=== PATIENT | male | born 1975 | race Caucasian/White ===

== ENCOUNTER 2019-07-26 10:47 | Emergency (ER) | payer OTHER ==
[~2019-07-26] VITALS: Ht 188 cm; Wt 95.2 kg
[2019-07-26 12:03] LABS: BASOPHILS ABSOLUTE AUTO 0.02 K/mm3 (0.00-0.23); BASOPHILS PERCENT AUTO 0 % (0-2); EOSINOPHILS ABSOLUTE AUTO 0.11 K/mm3 (0.00-0.68); EOSINOPHILS PERCENT AUTO 2 % (0-6); Hematocrit 45.4 % (37.0-53.0); Hemoglobin 14.8 g/dL (13.5-17.5); IMMATURE GRAN ABSOLUTE AUTO 0.01 K/mm3 (0.00-0.10); IMMATURE GRAN PERCENT AUTO 0 % (0-1); LYMPHOCYTES ABSOLUTE AUTO 1.43 K/mm3 (0.84-5.20); LYMPHOCYTES PERCENT AUTO 31 % (21-46); MONOCYTES ABSOLUTE AUTO 0.47 K/mm3 (0.16-1.47); MONOCYTES PERCENT AUTO 10 % (4-13); Mean Corpuscular HGB 30.9 pg (26.0-34.0); Mean Corpuscular HGB Conc 32.6 g/dL (31.5-36.5); Mean Corpuscular Volume 95 fL (80-100); Mean Platelet Volume 10.7 fL (9.1-12.4); NEUTROPHILS ABSOLUTE AUTO 2.59 K/mm3 (1.96-9.15); NEUTROPHILS PERCENT AUTO 56 % (41-73); Platelet Count 247 K/mm3 (150-400); RDW Coefficient Variation 11.2 % (11.7-14.2); RDW Standard Deviation 39.4 fL (35.1-46.3); Red Blood Cell Count 4.79 M/mm3 (4.30-5.90); White Blood Cell Count 4.63 K/mm3 (4.00-11.30)
[2019-07-26 12:32] LABS: Alanine Aminotransfer (ALT/SGP 87 U/L (12-78); Albumin, Blood 4.1 g/dL (3.4-5.0); Albumin/Globulin Ratio 1.2 (0.8-1.8); Alk Phos 129 U/L (50-136); Anion Gap 5 mmol/L (6-16); Aspartate Aminotrans (AST/SGOT 39 U/L (12-37); Bilirubin, Total 0.5 mg/dL (0.1-1.0); Blood Urea Nitrogen 16 mg/dL (8-24); CO2, Blood 28 mmol/L (21-32); Calcium, Blood 8.5 mg/dL (8.5-10.1); Chloride, Blood 107 mmol/L (98-108); Creatinine, Blood 0.94 mg/dL (0.60-1.20); Globulin, Blood 3.3 g/dL (2.2-4.0); Glomerular Filtration Rate >60 (60-); Glucose, Blood 83 mg/dL (70-99); Potassium, Blood 3.8 mmol/L (3.5-5.5); Sodium, Blood 140 mmol/L (136-145); Total Protein, Blood 7.4 g/dL (6.4-8.2); Troponin I <0.015 ng/mL (0.000-0.040)
== END 2019-07-26 15:01 | disposition home or self-care (01) ==
LOC: ER 10:47
PROVIDERS: Physician Assistant
DX: G45.9 Transient cerebral ischemic attack, unspecified (principal)
CPT/HCPCS: 70450; 80053; 84484; 85025; 93005; 93010; 99285-25

== ENCOUNTER 2019-08-08 08:35 | Emergency (ER) | payer OTHER ==
[~2019-08-08] VITALS: Ht 185.4 cm; Wt 108.9 kg
[2019-08-08] MEDS ORDERED: TIMDOROPSO (09:30)
[2019-08-08] MEDS ORDERED: PARO30 PO (09:31)
[2019-08-08 10:44] LABS: BASOPHILS ABSOLUTE AUTO 0.02 K/mm3 (0.00-0.23); BASOPHILS PERCENT AUTO 1 % (0-2); EOSINOPHILS ABSOLUTE AUTO 0.21 K/mm3 (0.00-0.68); EOSINOPHILS PERCENT AUTO 5 % (0-6); Hematocrit 43.6 % (37.0-53.0); Hemoglobin 14.3 g/dL (13.5-17.5); IMMATURE GRAN PERCENT AUTO 0 % (0-1); LYMPHOCYTES ABSOLUTE AUTO 1.62 K/mm3 (0.84-5.20); LYMPHOCYTES PERCENT AUTO 37 % (21-46); MONOCYTES ABSOLUTE AUTO 0.46 K/mm3 (0.16-1.47); MONOCYTES PERCENT AUTO 11 % (4-13); Mean Corpuscular HGB 30.6 pg (26.0-34.0); Mean Corpuscular HGB Conc 32.8 g/dL (31.5-36.5); Mean Corpuscular Volume 93 fL (80-100); Mean Platelet Volume 10.6 fL (9.1-12.4); NEUTROPHILS ABSOLUTE AUTO 2.02 K/mm3 (1.96-9.15); NEUTROPHILS PERCENT AUTO 47 % (41-73); Platelet Count 201 K/mm3 (150-400); RDW Coefficient Variation 11.5 % (11.7-14.2); RDW Standard Deviation 39.2 fL (35.1-46.3); Red Blood Cell Count 4.68 M/mm3 (4.30-5.90); White Blood Cell Count 4.33 K/mm3 (4.00-11.30)
[2019-08-08 10:58] LABS: International Normalized Ratio 1.04; Prothrombin Time Results 11.1 Sec (9.7-11.5)
[2019-08-08 11:09] LABS: Alanine Aminotransfer (ALT/SGP 79 U/L (12-78); Albumin, Blood 3.9 g/dL (3.4-5.0); Albumin/Globulin Ratio 1.3 (0.8-1.8); Alk Phos 134 U/L (50-136); Anion Gap 3 mmol/L (6-16); Aspartate Aminotrans (AST/SGOT 36 U/L (12-37); Bilirubin, Total 0.5 mg/dL (0.1-1.0); Blood Urea Nitrogen 16 mg/dL (8-24); Bun/Creatinine Ratio 18.8 (12.0-20.0); CO2, Blood 30 mmol/L (21-32); Calcium, Blood 8.3 mg/dL (8.5-10.1); Chloride, Blood 108 mmol/L (98-108); Creatinine, Blood 0.85 mg/dL (0.60-1.20); Globulin, Blood 3.1 g/dL (2.2-4.0); Glomerular Filtration Rate >60 (60-); Glucose, Blood 91 mg/dL (70-99); Sodium, Blood 141 mmol/L (136-145)
[2019-08-08 13:44] LABS: U Amphetamine Screen Not Detected; U Barbituate Screen Not Detected; U Benzodiazapine Screen Not Detected; U Buprenorphine Screen Not Detected; U Cannabinoids Screen Not Detected; U Cocaine Screen Not Detected; U Methadone Screen Not Detected; U Methamphetamine Screen Not Detected; U Opiates Screen Not Detected; U Oxycodone Screen Not Detected; U Phencyclidine Screen Not Detected; U Propoxyphene Screen Not Detected
[2019-08-08] MEDS ORDERED: CLOP75 PO (17:04)
== END 2019-08-08 17:16 | disposition other institution (70) ==
LOC: MRI 08:35 → ER 08:35
PROVIDERS: Physician Assistant
DX: G83.21 Monoplegia of upper limb affecting right dominant side (principal); Z88.6 Allergy status to analgesic agent; Z79.899 Other long term (current) drug therapy; Z86.73 Personal history of transient ischemic attack (TIA), and cerebral infarction without residual deficits
CPT/HCPCS: 70450; 70496; 70498; 70551; 72141; 80053; 85025; 85610; 93005; 93010; 99285-25; Q9967

== ENCOUNTER 2019-11-11 04:57 | Emergency (ER) | payer OTHER ==
[~2019-11-11] VITALS: Ht 182.9 cm; Wt 113.4 kg
[~2019-11-11 04:57] MED LIST: CLOP75 PO; PARO30 PO; TIMDOROPSO
== END 2019-11-11 06:35 | disposition home or self-care (01) ==
LOC: ER 04:57
DX: S00.81XA Abrasion of other part of head, initial encounter (principal); F10.129 Alcohol abuse with intoxication, unspecified; Z88.6 Allergy status to analgesic agent; Z79.899 Other long term (current) drug therapy; I10 Essential (primary) hypertension; E78.5 Hyperlipidemia, unspecified; W18.30XA Fall on same level, unspecified, initial encounter
CPT/HCPCS: 70450; 72125; 96374; 99284-25; J2405

== ENCOUNTER 2024-05-28 11:01 | Day surgery (SDC) | payer OTHER ==
[~2024-05-28] VITALS: Ht 182.9 cm; Wt 106.9 kg
[2024-05-28] VITALS (13 sets, daily range): BP systolic 106–158; BP diastolic 64–105
[~2024-05-28 11:01] MED LIST changes: +Acetaminophen 500 MG Tab PO SCH; +CYMBALTA30 M1 PO; +CeFAZolin Sodium 2,000 MG in NS 100 ML IV SCH; +Chlorhexidine Mouth Care 15 ML UDC MT SCH; +EYE; +FentaNYL Citrate 50 MCG/ML 2 ML Injection ONE; +Lactated Ringer's 1,000 ML IV SCH; +OxyCODONE HCL 10 MG TABCR PO SCH; +Ropivacaine 0.5% HCl/Pf 123.125 MG,EPINEPHrine HCL 0.25 MG,Ketorolac Tromethamine 15 MG... INFIL SCH; +TIMOLOL BRIMONI; +Tranexamic Acid 1,000 MG in NS 100 ML IV SCH; +propofoL 40 ML IV ONE
[2024-05-28] MEDS ORDERED: CeFAZolin Sodium 2,000 MG VIAL ONE (11:41)
--- NOTE | 2024-05-28 11:54 | NUR ---
INTO [facility]. PT REPORTS 6/10 LEFT HIP PAIN WITH MOVEMENT. HISTORY AND ALLERGIES REVIEWED. LUNGS CLEAR-SATS>90% ON RA. NPO STATUS CONFIRMED. CHLORHEXIDINE SHOWER AND WIPE X 2.
[2024-05-28] MEDS ORDERED: DiphenhydrAMINE HCL 25 MG Cap PO PRN (12:30)
[2024-05-28] MEDS ORDERED: Promethazine HCl 25 MG Tab PO PRN (12:30)
[2024-05-28] MEDS ORDERED: Prochlorperazine Edisylate 10 mg Vial IV PRN (12:30)
[2024-05-28] MEDS ORDERED: Lactated Ringer's 1,000 ML IV SCH (12:35)
[2024-05-28] MEDS ORDERED: Bisacodyl 10 MG Supp PR PRN (12:35)
[2024-05-28] MEDS ORDERED: Magnesium Hydroxide Conc 10 ML UDC PO PRN (12:35)
[2024-05-28] MEDS ORDERED: FLU VACC TS2024-25(6MOS UP)/PF 45 MCG/0.5 ML SYRINGE IM SCH (12:40)
[2024-05-28] MEDS ORDERED: Metoclopramide HCl 5MG / ML 2ML Vial IV PRN (12:40)
[2024-05-28] MEDS ORDERED: OxyCODONE HCL 5 MG TAB PO PRN ×2 (12:40)
[2024-05-28] MEDS ORDERED: HYDROmorphone HCl/Pf 1MG SYR IV PRN (12:40)
[2024-05-28] MEDS ORDERED: Ondansetron HCl 2 MG / ML 2ML Vial IV PRN (12:40)
[2024-05-28] MEDS ORDERED: propofoL 20 ML IV ONE ×3 (12:41→13:43)
[2024-05-28] MEDS ORDERED: Acetaminophen 500 MG Tab PO SCH (16:00)
[2024-05-28] MEDS ORDERED: Ketorolac Tromethamine 15mg Vial IV SCH (18:00)
[2024-05-28] MEDS ORDERED: CeFAZolin Sodium 2,000 MG in NS 100 ML IV SCH (20:30)
[2024-05-28] MEDS ORDERED: Docusate Sodium 100 MG Cap PO SCH (21:00)
--- NOTE | 2024-05-29 04:21 | NUR ---
SHIFT SUMMARY ANGEL WAS ALERT AND FULLY ORIENTED ON ASSESMENT. POD 0 FOR ELECTIVE LTH. PT SENSATION AND CIRCULATION TO DISTAL AFFECTED LEG INTACT. PAIN MODERATELY WELL CONTROLLED. INSCISION SITE/ DRESSING C/D/I. NO ACUTE EVENTS TONIGHT. NO NOTED CHANGES TO PT CONDITION. PT ABLE TO STAND AND AMBULATE WITH SBA FWW AND GB. PT VOIDING APPROPRIATELY.
[2024-05-29 04:26] VITALS: BP 119/79
[2024-05-29 05:51] LABS: BASOPHILS ABSOLUTE AUTO 0.03 K/mm3 (0.00-0.23); BASOPHILS PERCENT AUTO 0 % (0-2); EOSINOPHILS ABSOLUTE AUTO 0.03 K/mm3 (0.00-0.68); EOSINOPHILS PERCENT AUTO 0 % (0-6); Hematocrit 37.8 % (37.0-53.0); IMMATURE GRAN ABSOLUTE AUTO 0.05 K/mm3 (0.00-0.10); IMMATURE GRAN PERCENT AUTO 0 % (0-1); LYMPHOCYTES ABSOLUTE AUTO 1.35 K/mm3 (0.84-5.20); LYMPHOCYTES PERCENT AUTO 11 % (21-46); MONOCYTES ABSOLUTE AUTO 1.36 K/mm3 (0.16-1.47); MONOCYTES PERCENT AUTO 11 % (4-13); Mean Corpuscular HGB 30.1 pg (26.0-34.0); Mean Corpuscular HGB Conc 34.4 g/dL (31.5-36.5); Mean Corpuscular Volume 88 fL (80-100); Mean Platelet Volume 10.1 fL (9.1-12.4); NEUTROPHILS ABSOLUTE AUTO 9.83 K/mm3 (1.96-9.15); NEUTROPHILS PERCENT AUTO 78 % (41-73); Platelet Count 238 K/mm3 (150-400); RDW Coefficient Variation 11.7 % (11.7-14.2); RDW Standard Deviation 37.3 fL (35.1-46.3); Red Blood Cell Count 4.32 M/mm3 (4.30-5.90); White Blood Cell Count 12.65 K/mm3 (4.00-11.30)
[2024-05-29 06:20] LABS: Magnesium, Blood 1.7 mg/dL (1.6-2.4)
[2024-05-29 06:23] LABS: Bun/Creatinine Ratio 24.3 (12.0-20.0); Calcium, Blood 8.5 mg/dL (8.5-10.1); Creatinine, Blood 0.82 mg/dL (0.60-1.20); Potassium, Blood 3.8 mmol/L (3.5-5.5)
[2024-05-29 07:21] VITALS: BP 106/76
[2024-05-29] MEDS ORDERED: ACET500 PO (08:37)
[2024-05-29] MEDS ORDERED: OXYC5 PO (08:39)
[2024-05-29] MEDS ORDERED: XARELTO20 MG PO (08:39)
[2024-05-29] MEDS ORDERED: DULoxetine HCL 60 MG Capsule DR PO SCH (09:00)
--- NOTE | 2024-05-29 10:08 | NUR ---
POD1- L HIP. PRINEO DRESSING C/D/I. DENIES N/T. SENSATION INTACT. MIN 1-2/10 PAIN IN L HIP. VSS. AOX4. PT CLEARED BY PHYSICAL THERAPY. PT AWAITING RIDE TO ARRIVE.
[2024-05-29] MEDS ORDERED: Rivaroxaban 10 MG Tab PO SCH (13:00)
== END 2024-05-29 10:34 | disposition home or self-care (01) ==
LOC: ORSCMMR 11:01 → ORD 12:30 → ORSCMMR 12:30 → ORD 13:00 → SURS 14:39 → ORSCMMR 05-29 10:34
PROVIDERS: Orthopaedic Surgery
PROC: 0SRB0JA Replacement of Left Hip Joint with Synthetic Substitute, Uncemented, Open Approach (ICD-10-PCS; principal; 2024-05-28 12:30)
DX: M16.12 Unilateral primary osteoarthritis, left hip (principal); M87.052 Idiopathic aseptic necrosis of left femur; F41.9 Anxiety disorder, unspecified; F32.A Depression, unspecified; Z79.899 Other long term (current) drug therapy
CPT/HCPCS: 36415; 72170; 80048; 83735; 85025; 97110; 97116; 97162; A9270; C1713; C1776; J0171; J0690; J0735; J1885; J2704; J2795; J3010; J7120

== ENCOUNTER 2025-02-26 06:12 | Day surgery (SDC) | payer OTHER ==
[~2025-02-26] VITALS: Ht 182.9 cm; Wt 106.4 kg
[~2025-02-26 06:12] MED LIST changes: +ACET500 PO; -Acetaminophen 500 MG Tab PO SCH; -CeFAZolin Sodium 2,000 MG in NS 100 ML IV SCH; -Chlorhexidine Mouth Care 15 ML UDC MT SCH; -FentaNYL Citrate 50 MCG/ML 2 ML Injection ONE; -Lactated Ringer's 1,000 ML IV SCH; +OXYC5 PO; -OxyCODONE HCL 10 MG TABCR PO SCH; -Ropivacaine 0.5% HCl/Pf 123.125 MG,EPINEPHrine HCL 0.25 MG,Ketorolac Tromethamine 15 MG... INFIL SCH; -Tranexamic Acid 1,000 MG in NS 100 ML IV SCH; +XARELTO20 MG PO; -propofoL 40 ML IV ONE
[2025-02-26] MEDS ORDERED: CeFAZolin Sodium 2,000 MG VIAL ONE (06:27)
[2025-02-26] MEDS ORDERED: NS 0 ML IV ONE (06:28)
[2025-02-26] MEDS ORDERED: Tranexamic Acid 100 ML IV ONE (06:37)
[2025-02-26] MEDS ORDERED: CELE100 PO (06:50)
[2025-02-26] MEDS ORDERED: FentaNYL Citrate 50 MCG/ML 2 ML Injection ONE ×2 (07:15→09:12)
[2025-02-26] MEDS ORDERED: Midazolam HCl 1MG / ML 2ML Vial ONE (07:15)
[2025-02-26] MEDS ORDERED: Rocuronium Bromide 10 MG/ML 5ML Injection IV ONE (07:16)
[2025-02-26] MEDS ORDERED: Dexamethasone Sod Phos 10 MG/ML 1ML VIAL ONE (07:16)
[2025-02-26] MEDS ORDERED: Bupivacaine HCl 0.25% 30 ML Injection ONE (07:17)
--- NOTE | 2025-02-26 07:34 | NUR ---
02/26/25 [address] FUNES AT BEDSIDE FOR NERVE BLOCK, TIMEOUT PERFORMED. START PROCEDURE AT 0726, END AT 0728. PT TOLERATED PROCEDURE WELL.
[2025-02-26] MEDS ORDERED: Phenylephrine HCl 100 MCG/ML-NS 10MLSYR (1MG/10ML) ONE (07:57)
--- NOTE | 2025-02-26 08:10 | NUR ---
02/26/25 0810 Meme Antonio 1MG EPI ADDED TO EACH OF THE FIRST THREE BAGS OF LR USED IN JOINT IRRIGATION.
[2025-02-26] MEDS ORDERED: Ondansetron HCl 2 MG / ML 2ML Vial ONE (08:34)
[2025-02-26] MEDS ORDERED: Sugammadex Sodium 200 MG/2ML SDV (100 MG/ML) ONE (08:34)
--- NOTE | 2025-02-26 08:56 | NUR ---
02/26/25 0856 Palak Walters 0851 O2 10L/MASK REMOVED, SATS 100% & PT. TRYING TO TAKE IT OFF.
[2025-02-26 09:33] VITALS: BP 166/99
--- NOTE | 2025-02-26 11:10 | NUR ---
02/26/25 1110 Zachary Hsu PT MAINTAINED O2 93-100% FOR MOST OF STAY IN SDU WITH OCCASIONAL, BRIEF DROPS TO 91-89%. O2 QUICKLY, SPONTANEOUSLY RETURNED TO >92%. PT APPEARED ALERT AND RELAXED. HE DENIED SOB, CP, AND OTHER SYMPTOMS. HE WAS GIVEN INCENTIVE SPIROMETER AND INSTRUCTED IN ITS USE. DR. FUNES WAS CONSULTED. HE APPROVED OXYCODONE ADMINISTRATION AND D/C WITH CURRENT O2 LEVEL. PT DID NOT DROP BELOW 92% AFTER 1045. PT DESCRIBED 2/10, TOLERABLE PAIN AT TIME OF D/C AND DENIED NAUSEA. HE EXPRESSED READINESS TO RETURN HOME.
== END 2025-02-26 11:11 | disposition home or self-care (01) ==
LOC: ORSCSDS 06:12
PROVIDERS: Orthopaedic Surgery Sports Medicine
PROC: 0RBJ4ZZ Excision of Right Shoulder Joint, Percutaneous Endoscopic Approach (ICD-10-PCS; principal; 2025-02-26 07:30)
DX: M19.011 Primary osteoarthritis, right shoulder (principal); M75.41 Impingement syndrome of right shoulder; M25.811 Other specified joint disorders, right shoulder; M24.011 Loose body in right shoulder; Z96.642 Presence of left artificial hip joint; F41.9 Anxiety disorder, unspecified; F32.A Depression, unspecified; Z79.899 Other long term (current) drug therapy
CPT/HCPCS: A9270; J0166; J0690; J1100; J2250; J2371; J2405; J2704; J3010; J7120